=== PATIENT | female | born 1950 | race Caucasian/White ===

== ENCOUNTER → 2017-10-09 | Outpatient (REF) | payer BC | LOC: M LAB REF 12:10 | DX: E04.1 Nontoxic single thyroid nodule (principal) | CPT/HCPCS: 88173 ==

== ENCOUNTER → 2023-06-07 | Outpatient (CLI) | payer BC | LOC: M SOG 08:20 | PROVIDERS: ATTEND Orthopaedic Surgery | DX: M54.2 Cervicalgia (principal) ==

== ENCOUNTER 2023-10-09 06:16 | Day surgery (SDC) | payer MEDICARE ==
[~2023-10-09] VITALS: Ht 167.6 cm; Wt 97.1 kg
[~2023-10-09 06:16] MED LIST: ALLO100T PO; ASPI-255 PO; ATOR40TA75 PO; CARV12.5 PO; CETI10CH PO; DIVA500T94 PO; FURO40TA2 PO; LR 1,000 ML IV SCH; METH-1164 PO; SYNT50TA PO
[2023-10-09] MEDS ORDERED: ROCURONIUM BROMIDE 50MG/5ML VIAL As Ordered ONE (06:57)
[2023-10-09] MEDS ORDERED: LIDOCAINE 2% 100MG/5ML SDV (FOR ANES.) As Ordered ONE (06:57)
[2023-10-09] MEDS ORDERED: propofoL 200 MG/20 ML VIAL As Ordered ONE (06:57)
[2023-10-09] MEDS ORDERED: ONDANSETRON 4MG 2ML VIAL As Ordered ONE (06:57)
[2023-10-09] MEDS ORDERED: MIDAZOLAM INJ 2MG/2ML VIAL As Ordered ONE (06:58)
[2023-10-09] MEDS ORDERED: fentaNYL 100 MCG/2 ML INJECTION As Ordered ONE (06:58)
[2023-10-09] MEDS ORDERED: PHENYLephrine 500MCG 5ML (100MCG/ML) SYRINGE As Ordered ONE (07:32)
[2023-10-09] MEDS ORDERED: ePHEDrine SULFATE 25 MG/5 ML(5MG/ML) SYRINGE As Ordered ONE (07:32)
[2023-10-09] MEDS ORDERED: ATROPINE SULF 0.4 MG/ML 1ML VIAL As Ordered ONE (07:53)
[2023-10-09 09:00] VITALS: BP 118/57; TEMP 98.6; O2SAT 95
== END 2023-10-09 09:10 | disposition home or self-care (01) ==
LOC: M SDC 06:16
PROVIDERS: ATTEND Orthopaedic Surgery Hand Surgery
DX: G56.01 Carpal tunnel syndrome, right upper limb (principal); Z53.09 Procedure and treatment not carried out because of other contraindication
CPT/HCPCS: 29848; J2250; J2405; J3010